=== PATIENT | male | born 1980 | race Caucasian/White ===

== ENCOUNTER 2021-07-03 11:28 | Emergency (ER) | payer OTHER ==
[~2021-07-03] VITALS: Ht 180.3 cm; Wt 83.5 kg
[2021-07-03] MEDS ORDERED: PREDNISONE 20 M20 M1 PO (12:05)
[2021-07-03] MEDS ORDERED: HYDROCODON-ACE1 EAC7 PO (12:05)
[2021-07-03] MEDS ORDERED: FLEXERIL PO (12:05)
[2021-07-03 12:12] VITALS: BP 138/86
== END 2021-07-03 12:12 | disposition home or self-care (01) ==
LOC: M.ERS 11:28
DX: S46.911A Strain of unspecified muscle, fascia and tendon at shoulder and upper arm level, right arm, initial encounter (principal); X58.XXXA Exposure to other specified factors, initial encounter; Y93.89 Activity, other specified; Y92.89 Other specified places as the place of occurrence of the external cause; Y99.8 Other external cause status